=== PATIENT | male | born 1995 | race Hispanic/Latino ===

== ENCOUNTER 2017-11-11 14:58 | Emergency (ER) | payer OTHER ==
[~2017-11-11] VITALS: Ht 177.8 cm; Wt 99.3 kg
[2017-11-11] MEDS ORDERED: KETOROLAC TROMETHAMINE 30 MG/ML VIAL IV STA (15:27)
[2017-11-11] MEDS ORDERED: SODIUM CHLORIDE 0.9% 1000ML 1,000 ML ONE (15:30)
[2017-11-11] MEDS ORDERED: PROMETHAZINE HCL (IM) 25 MG/ML VIAL IM ONE (15:30)
[2017-11-11] MEDS ORDERED: ZOFRAN ODT4 MG SL (16:55)
[2017-11-11] MEDS ORDERED: PROMETHAZINE HC25 M1 PO (16:55)
[2017-11-11] MEDS ORDERED: IMODIUM A-1 MG/7.5 M PO (16:55)
[2017-11-11] MEDS ORDERED: ACETAMINOPHEN 325 MG TAB PO ONE (17:00)
[2017-11-11 17:21] VITALS: BP 164/89
== END 2017-11-11 17:10 | disposition home or self-care (01) ==
LOC: FSED 14:58
DX: R50.9 Fever, unspecified (principal); R19.7 Diarrhea, unspecified; R11.2 Nausea with vomiting, unspecified; A04.4 Other intestinal Escherichia coli infections
CPT/HCPCS: 80048; 80076; 81003; 85025; 99284; J1885; J2550; J7030